=== PATIENT | male | born 1970 | race African-American/Black ===

== ENCOUNTER 2019-03-11 10:44 | Inpatient (IN) | payer OTHER ==
[~2019-03-11] VITALS: Ht 175.3 cm; Wt 77.8 kg
[~2019-03-11 10:44] MED LIST: ACET500T33 PO; ALEVE PO; ASPIRIN PO; CHOL10003 PO; HYDR1TAB15 PO; LOSA-73 PO
[2019-03-11] MEDS ORDERED: CIPROFLOXACIN 400MG PREMIX 200 ML IV STA (11:23)
--- NOTE | 2019-03-11 11:23 | PHYS DOC ---
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 He states his foot has been progressively getting worse and his skin has been peeling off. States it has been progressively getting worse. (ADIEL HSU APRN) Review of Systems Review of Systems Constitutional: Denies fever or chills [] Eyes: Denies change in visual acuity, redness, or eye pain [] HENT: Denies nasal congestion or sore throat [] Respiratory: Denies cough or shortness of breath [] Cardiovascular: No additional information not addressed in HPI [] GI: Denies abdominal pain, nausea, vomiting, bloody stools or diarrhea [] : Denies dysuria or hematuria [] Musculoskeletal: Denies back pain or joint pain [] Integument: Reports infection to R foot. Neurologic: Denies headache, focal weakness or sensory changes [] Endocrine: Denies polyuria or polydipsia [] Complete systems were reviewed and found to be within normal limits, except as documented in this note. (ADIEL HSU APRN) Current Medications Current Medications Current Medications Medications (Trade) Dose Ordered Sig/Gonsalo Start Time Stop Time Status Last Admin Dose Admin Ciprofloxacin/ Dextrose 200 ml @ 200 mls/hr 1X STAT 03/11/19 11:23 03/11/19 12:22 Sodium Chloride 1,000 ml @ 1,000 mls/hr 1X ONCE 03/11/19 11:30 03/11/19 12:29 (ARNALDO MARTINEZ MD) Allergies Allergies Allergies Coded Allergies Type Severity Reaction Last Updated Verified No Known Drug Allergies 08/25/14 No (ARNALDO MARTINEZ MD) Physical Exam Physical Exam Constitutional: Well developed, well nourished, no acute distress, non-toxic appearance. [] HENT: Normocephalic, atraumatic, bilateral external ears normal, oropharynx moist, no oral exudates, nose normal. [] Eyes: PERRLA, EOMI, conjunctiva normal, no discharge. [] Neck: Normal range of motion, no tenderness, supple, no stridor. [] Cardiovascular:Heart rate regular rhythm, no murmur [] Lungs & Thorax: Bilateral breath sounds clear to auscultation [] Abdomen: Bowel sounds normal, soft, no tenderness, no masses, no pulsatile mas ses. [] Skin: skin is peeling off the toes, and fascia of posterior foot is exposed. Back: No tenderness, no CVA tenderness. [] Extremities: Tenderness to posterior portion of foot with hypersensitivity. Neurologic: Alert and oriented X 3, normal motor function, normal sensory function, no focal deficits noted. [] Psychologic: Affect normal, judgement normal, mood normal. [] (ADIEL HSU APRN) Current Patient Data Vital Signs Vital Signs Date Time Temp Pulse Resp B/P (MAP) Pulse Ox O2 Delivery O2 Flow Rate FiO2 03/11/19 10:51 97.7 67 18 140/91 (107) 100 Room Air 97.7 (ARNALDO MARTINEZ MD) Lab Values Laboratory Tests Test 03/11/19 11:36 White Blood Count 4.0 x10^3/uL (4.0-11.0) Red Blood Count 4.00 x10^6/uL (4.30-5.70) L Hemoglobin 14.1 g/dL (13.0-17.5) Hematocrit 40.3 % (39.0-53.0) Mean Corpuscular Volume 101 fL (79-100) H Mean Corpuscular Hemoglobin 35 pg (25-35) Mean Corpuscular Hemoglobin Concent 35 g/dL (31-37) Red Cell Distribution Width 12.8 % (11.5-14.5) Platelet Count 248 x10^3/uL (140-400) Neutrophils (%) (Auto) 59 % (31-73) Lymphocytes (%) (Auto) 22 % (24-48) L Monocytes (%) (Auto) 17 % (0-9) H Eosinophils (%) (Auto) 2 % (0-3) Basophils (%) (Auto) 1 % (0-3) Neutrophils # (Auto) 2.3 x10^3/uL (1.8-7.7) Lymphocytes # (Auto) 0.9 x10^3/uL (1.0-4.8) L Monocytes # (Auto) 0.7 x10^3/uL (0.0-1.1) Eosinophils # (Auto) 0.1 x10^3/uL (0.0-0.7) Basophils # (Auto) 0.0 x10^3/uL (0.0-0.2) Lactic Acid Level 1.0 mmol/L (0.4-2.0) Laboratory Tests 03/11/19 11:36 (ADIEL SHU APRN) EKG EKG [] (ADIEL HSU APRN) Radiology/Procedures Radiology/Procedures [][facility] [address] [place] [address] IMAGING REPORT Signed PATIENT: GIL DUVAL ACCOUNT: [id number] : 1970 LOCATION: [address] [place] [address] AGE: 48 SEX: M EXAM STATUS: ADM IN ORD. PHYSICIAN: ADIEL HSU APRN REASON: trauma/infection to R foot PROCEDURE: FOOT RIGHT 3V FOOT RIGHT 3V 03/11/2019 11:11 AM INDICATION: Trauma. Infection of the right foot. COMPARISON: None available. TECHNIQUE: 3 views of the right foot are provided. FINDINGS: There is no acute fracture or dislocation. Bone mineralization is within normal limits. Joint spaces are maintained. Regional soft tissues are within normal limits. There is no soft tissue gas or osseous erosion. IMPRESSION: No acute fracture or dislocation. Electronically signed by: Evelin Myles MD (03/11/2019 12:29 PM) [facility] DICTATED and SIGNED BY: EVELIN MYLES MD DATE: 03/11/19 0536 (ADIEL HSU APRN) Course & Med Decision Making Course & Med Decision Making Pertinent Labs and Imaging studies reviewed. (See chart for details) Will get labs, x-ray, and give antibiotics. Labs and imaging are unremarkable. Will call hospitalist for admission. Discussed with Dr. Allen who agrees to admission ([id number]). (ADIEL HSU APRN) Course & Med Decision Making ER PHYSICIAN ATTENDING NOTE: I have personally seen and examined the patient, and agree with the history, physical exam, and plan, as documented by mid-level provider. The patient does have sensation present on his toes distally. (ARNALDO MARTINEZ MD) Dragon Disclaimer Dragon Disclaimer This electronic medical record was generated, in whole or in part, using a voice recognition dictation system. (ADIEL HSU APRN) Departure Departure Impression: Primary Impression: Trench foot of right lower extremity Additional Impression: Foot infection Disposition: ADMITTED INPATIENT Admitting Physician: PURVI (ADIEL HSU APRN) Condition: STABLE Referrals: Ligia GOODE MD (PCP) Problem Qualifiers Primary Impression: Trench foot of right lower extremity Encounter type: initial encounter Qualified Codes: T69.021A - Immersion foot, right foot, initial encounter ADIEL HSU APRN Mar 11, 2019 11:23 ARNALDO MARTINEZ MD Mar 11, 2019 11:33
[2019-03-11] MEDS ORDERED: IV NORMAL SALINE 1000ML BAG 1,000 ML IV ONE (11:30)
[2019-03-11 11:49] LABS: BASO % 1 % (0-3); EOS # 0.1 x10^3/uL (0.0-0.7); EOS % 2 % (0-3); HEMATOCRIT 40.3 % (39.0-53.0); HEMOGLOBIN 14.1 g/dL (13.0-17.5); LYMPH # 0.9 x10^3/uL (1.0-4.8); LYMPH % 22 % (24-48); MEAN CORPUSCULAR HEMOGLOBIN 35 pg (25-35); MEAN CORPUSCULAR HGB CONC 35 g/dL (31-37); MEAN CORPUSCULAR VOLUME 101 fL (79-100); MONO # 0.7 x10^3/uL (0.0-1.1); MONO % 17 % (0-9); NEUT # 2.3 x10^3/uL (1.8-7.7); NEUT % 59 % (31-73); PLATELET COUNT 248 x10^3/uL (140-400); RED CELL DISTRIBUTION WIDTH 12.8 % (11.5-14.5)
[2019-03-11] MEDS ORDERED: CLINDAMYCIN 600MG PREMIX 50 ML IV ONE (12:00)
[2019-03-11] MEDS ORDERED: MORPHINE SULFATE 2 MG/ML VIAL. IV PRN (12:00)
[2019-03-11 12:25] LABS: CALCIUM 8.5 mg/dL (8.5-10.1); CREATININE 1.1 mg/dL (0.7-1.3); GFR 87.2; POTASSIUM 3.4 mmol/L (3.5-5.1)
[2019-03-11 12:30] LABS: ALBUMIN 3.6 g/dL (3.4-5.0); TOTAL BILIRUBIN 0.4 mg/dL (0.2-1.0); TOTAL PROTEIN 7.1 g/dL (6.4-8.2)
--- NOTE | 2019-03-11 12:32 | RAD ---
FOOT RIGHT 3V 03/11/2019 11:11 AM INDICATION: Trauma. Infection of the right foot. COMPARISON: None available. TECHNIQUE: 3 views of the right foot are provided. FINDINGS: There is no acute fracture or dislocation. Bone mineralization is within normal limits. Joint spaces are maintained. Regional soft tissues are within normal limits. There is no soft tissue gas or osseous erosion. IMPRESSION: No acute fracture or dislocation. Electronically signed by: Jovana Torres MD (03/11/2019 12:29 PM) [facility] [place]
--- NOTE | 2019-03-11 12:38 | PDOC1 ---
History and Physical Date of Admission Date of Admission DATE: 03/11/19 TIME: 10:38 Identification/Chief Complaint Chief Complaint SEEN IN ER WITH RIGHT FOOT INFECTION working at an [employer] complex a week ago and he stepped in some water and his feet were soaked for 9 hours. He states his foot has been progressively getting worse and his skin has been peeling off. States it has been progressively getting worse. Past Medical History Past Medical History Past Medical History: High Cholesterol, Hypertension Past Surgical History: No Surgical History NO TOBACCO Alcohol Use: Occasionally Drug Use: Marijuana WORKS AT [employer] Cardiovascular: HTN, Hyperlipidemia Psych: Addictions Family History Family History: Hypertension Social History Smoke: No ALCOHOL: occassional Drugs: Marijuana Current Problem List Problem List Problems Medical Problems: (1) Foot infection Status: Acute (2) Necrosis of tissue at site of injection Status: Acute (3) Trench foot of right lower extremity Status: Acute Current Medications Current Medications Current Medications Sodium Chloride 1,000 ml @ 1,000 mls/hr 1X ONCE IV Last administered on 03/11/19at 11:38; Start 03/11/19 at 11:30; Stop 03/11/19 at 12:29; Status DC Ciprofloxacin/ Dextrose 200 ml @ 200 mls/hr 1X STAT IV Last administered on 03/11/19at 11:55; Start 03/11/19 at 11:23; Stop 03/11/19 at 12:22; Status DC Clindamycin Phosphate 50 ml @ 100 mls/hr 1X ONCE IV ; Start 03/11/19 at 12:00; Stop 03/11/19 at 12:29; Status DC Morphine Sulfate (Morphine Sulfate) 2 mg PRN Q2HR PRN IV PAIN; Start 03/11/19 at 12:00; Stop 03/12/19 at 11:59 Active Scripts Active Reported Vicodin Es 7.5-300 Mg Tablet (Hydrocodone Bit/Acetaminophen) 1 Each Tablet 1 Each PO Q6HRS PRN [Aleve] PO PRN PRN Tylenol Extra Strength (Acetaminophen) 500 Mg Tablet 1,000 Mg PO PRN PRN Vitamin D3 (Cholecalciferol (Vitamin D3)) 1,000 Unit Tablet 1 Tab PO BID Losartan Potassium 50 Mg Tablet 1 Tab PO DAILY Allergies Allergies: Coded Allergies: No Known Drug Allergies (Unverified , 08/25/14) ROS Review of System Review of Systems Review of Systems Constitutional: Denies fever or chills [] Eyes: Denies change in visual acuity, redness, or eye pain [] HENT: Denies nasal congestion or sore throat [] Respiratory: Denies cough or shortness of breath [] Cardiovascular: No additional information not addressed in HPI [] GI: Denies abdominal pain, nausea, vomiting, bloody stools or diarrhea [] : Denies dysuria or hematuria [] Musculoskeletal: Denies back pain or joint pain [] Integument: Reports infection to R foot. Neurologic: Denies headache, focal weakness or sensory changes [] Endocrine: Denies polyuria or polydipsia [] 14 PT systems were reviewed and found to be within normal limits, except as documented Physical Exam Physical Exam Physical Exam Physical Exam Constitutional: Well developed, well nourished, no acute distress, non-toxic appearance. [] HENT: Normocephalic, atraumatic, bilateral external ears normal, oropharynx moist, no oral exudates, nose normal. [] Eyes: PERRLA, EOMI, conjunctiva normal, no discharge. [] Neck: Normal range of motion, no tenderness, supple, no stridor. [] Cardiovascular:Heart rate regular rhythm, no murmur [] Lungs & Thorax: Bilateral breath sounds clear to auscultation [] Abdomen: Bowel sounds normal, soft, no tenderness, no masses, no pulsatile masses. [] Skin: skin is peeling off the toes, and fascia of posterior foot is exposed. Back: No tenderness, no CVA tenderness. [] Extremities: Tenderness to posterior portion of RIGHT foot with hypersensitivity. Neurologic: Alert and oriented X 3, normal motor function, normal sensory function, no focal deficits noted. [] Psychologic: Affect normal, judgment normal, mood normal. [] General: Alert, Oriented X3, Cooperative, No acute distress HEENT: EOMI, Mucous membr. moist/pink Lungs: Clear to auscultation, Normal air movement Heart: RRR, no thrills Abdomen: Normal bowel sounds, Soft Rectal Exam: not examined Extremities: No cyanosis Neuro: Normal speech, Cranial nerves 3-12 NL Psych/Mental Status: Mental status NL, Mood NL Vitals Vitals Vital Signs Date Time Temp Pulse Resp B/P (MAP) Pulse Ox O2 Delivery O2 Flow Rate FiO2 03/11/19 10:51 97.7 67 18 140/91 (107) 100 Room Air 97.7 Labs Labs Laboratory Tests Test 03/11/19 11:36 03/11/19 12:09 White Blood Count 4.0 x10^3/uL (4.0-11.0) Red Blood Count 4.00 x10^6/uL (4.30-5.70) Hemoglobin 14.1 g/dL (13.0-17.5) Hematocrit 40.3 % (39.0-53.0) Mean Corpuscular Volume 101 fL (79-100) Mean Corpuscular Hemoglobin 35 pg (25-35) Mean Corpuscular Hemoglobin Concent 35 g/dL (31-37) Red Cell Distribution Width 12.8 % (11.5-14.5) Platelet Count 248 x10^3/uL (140-400) Neutrophils (%) (Auto) 59 % (31-73) Lymphocytes (%) (Auto) 22 % (24-48) Monocytes (%) (Auto) 17 % (0-9) Eosinophils (%) (Auto) 2 % (0-3) Basophils (%) (Auto) 1 % (0-3) Neutrophils # (Auto) 2.3 x10^3/uL (1.8-7.7) Lymphocytes # (Auto) 0.9 x10^3/uL (1.0-4.8) Monocytes # (Auto) 0.7 x10^3/uL (0.0-1.1) Eosinophils # (Auto) 0.1 x10^3/uL (0.0-0.7) Basophils # (Auto) 0.0 x10^3/uL (0.0-0.2) Lactic Acid Level 1.0 mmol/L (0.4-2.0) Sodium Level 143 mmol/L (136-145) Potassium Level 3.4 mmol/L (3.5-5.1) Chloride Level 107 mmol/L (98-107) Carbon Dioxide Level 29 mmol/L (21-32) Anion Gap 7 (6-14) Blood Urea Nitrogen 13 mg/dL (8-26) Creatinine 1.1 mg/dL (0.7-1.3) Estimated GFR (Cockcroft-Gault) 87.2 BUN/Creatinine Ratio 12 (6-20) Glucose Level 93 mg/dL (70-99) Calcium Level 8.5 mg/dL (8.5-10.1) Total Bilirubin 0.4 mg/dL (0.2-1.0) Aspartate Amino Transf (AST/SGOT) 23 U/L (15-37) Alanine Aminotransferase (ALT/SGPT) 17 U/L (16-63) Alkaline Phosphatase 93 U/L (46-116) Total Protein 7.1 g/dL (6.4-8.2) Albumin 3.6 g/dL (3.4-5.0) Albumin/Globulin Ratio 1.0 (1.0-1.7) Laboratory Tests Test 03/11/19 11:36 03/11/19 12:09 White Blood Count 4.0 x10^3/uL (4.0-11.0) Red Blood Count 4.00 x10^6/uL (4.30-5.70) Hemoglobin 14.1 g/dL (13.0-17.5) Hematocrit 40.3 % (39.0-53.0) Mean Corpuscular Volume 101 fL (79-100) Mean Corpuscular Hemoglobin 35 pg (25-35) Mean Corpuscular Hemoglobin Concent 35 g/dL (31-37) Red Cell Distribution Width 12.8 % (11.5-14.5) Platelet Count 248 x10^3/uL (140-400) Neutrophils (%) (Auto) 59 % (31-73) Lymphocytes (%) (Auto) 22 % (24-48) Monocytes (%) (Auto) 17 % (0-9) Eosinophils (%) (Auto) 2 % (0-3) Basophils (%) (Auto) 1 % (0-3) Neutrophils # (Auto) 2.3 x10^3/uL (1.8-7.7) Lymphocytes # (Auto) 0.9 x10^3/uL (1.0-4.8) Monocytes # (Auto) 0.7 x10^3/uL (0.0-1.1) Eosinophils # (Auto) 0.1 x10^3/uL (0.0-0.7) Basophils # (Auto) 0.0 x10^3/uL (0.0-0.2) Lactic Acid Level 1.0 mmol/L (0.4-2.0) Sodium Level 143 mmol/L (136-145) Potassium Level 3.4 mmol/L (3.5-5.1) Chloride Level 107 mmol/L (98-107) Carbon Dioxide Level 29 mmol/L (21-32) Anion Gap 7 (6-14) Blood Urea Nitrogen 13 mg/dL (8-26) Creatinine 1.1 mg/dL (0.7-1.3) Estimated GFR (Cockcroft-Gault) 87.2 BUN/Creatinine Ratio 12 (6-20) Glucose Level 93 mg/dL (70-99) Calcium Level 8.5 mg/dL (8.5-10.1) Total Bilirubin 0.4 mg/dL (0.2-1.0) Aspartate Amino Transf (AST/SGOT) 23 U/L (15-37) Alanine Aminotransferase (ALT/SGPT) 17 U/L (16-63) Alkaline Phosphatase 93 U/L (46-116) Total Protein 7.1 g/dL (6.4-8.2) Albumin 3.6 g/dL (3.4-5.0) Albumin/Globulin Ratio 1.0 (1.0-1.7) Images Images FOOT RIGHT 3V 03/11/2019 11:11 AM INDICATION: Trauma. Infection of the right foot. COMPARISON: None available. TECHNIQUE: 3 views of the right foot are provided. FINDINGS: There is no acute fracture or dislocation. Bone mineralization is within normal limits. Joint spaces are maintained. Regional soft tissues are within normal limits. There is no soft tissue gas or osseous erosion. IMPRESSION: No acute fracture or dislocation. Electronically signed by: Evelin Torres MD (03/11/2019 12:29 PM) [place] [id number] DICTATED and SIGNED BY: EVELIN TORRES MD VTE Prophylaxis Ordered VTE Prophylaxis Devices: Contraindicated VTE Pharmacological Prophylaxi: Yes Assessment/Plan Assessment/Plan Impression: SEVERE Trench foot of right lower extremity CELLULITIS RIGHT FOOT, ACUTE THC ABUSE HX HX HTN PLAN ADMIT IV ANTIBIOTICS, CIPRO, CLINDAMYCIN X ONE IN ER ID CONSULT TD if not UTD DVT PROPHYLAXIS,LOVENOX WOUND CARE NURSE CONSULT ORTHO CONSULT 55 MIN PT EXAM, CHART REVIEW, > 50% OF TIME SPENT WITH EXAM, CHART REVIEW, PT CARE COORDINATION GIL RICE MD Mar 11, 2019 12:38
[2019-03-11] MEDS ORDERED: ACETAMINOPHEN 500 MG TABLET PO PRN (13:00)
[2019-03-11] MEDS ORDERED: DIPHTH,PERTUSS(ACELL),TET TOX 0.5 ML DISP.SYRIN. VAX IM ONE (13:00)
[2019-03-11] MEDS ORDERED: VANCOMYCIN 1.75 GM in IV NORMAL SALINE 500ML BAG 500 ML IV ONE (13:00)
[2019-03-11] MEDS ORDERED: HYDROcodone/APAP 7.5/325MG 1 TAB TABLET PO PRN (13:00)
[2019-03-11] MEDS ORDERED: POTASSIUM CHLORIDE 20 MEQ TABLET.ER. PO ONE (13:00)
[2019-03-11] MEDS ORDERED: VANCOMYCIN 1 GM in IV NORMAL SALINE 250ML 250 ML IV SCH (13:00)
--- NOTE | 2019-03-11 13:23 | PDOC ---
Infectious Disease Note Vital Signs: Vital Signs Vital Signs Date Time Temp Pulse Resp B/P (MAP) Pulse Ox O2 Delivery O2 Flow Rate FiO2 03/11/19 12:38 145/91 (109) 03/11/19 10:51 97.7 67 18 100 Room Air 97.7 Medications: Inpatient Meds: Current Medications Medications (Trade) Dose Ordered Sig/Gonsalo Start Time Stop Time Status Last Admin Dose Admin Acetaminophen (Tylenol) 1,000 mg PRN Q8HRS PRN 03/11/19 13:00 Acetaminophen/ Hydrocodone Bitart (Lortab 7.5/325) 1 tab PRN Q6HRS PRN 03/11/19 13:00 Ciprofloxacin/ Dextrose 200 ml @ 200 mls/hr 1X STAT 03/11/19 11:23 03/11/19 12:22 DC 03/11/19 11:55 200 MLS/HR Clindamycin Phosphate 50 ml @ 100 mls/hr 1X ONCE 03/11/19 12:00 03/11/19 12:29 DC Diphtheria/ Tetanus/Acell Pertussis (Boostrix) 0.5 ml ONCE ONCE 03/11/19 13:00 03/11/19 13:01 DC Losartan Potassium (Cozaar) 50 mg DAILY 03/12/19 09:00 Morphine Sulfate (Morphine Sulfate) 2 mg PRN Q2HR PRN 03/11/19 12:00 03/12/19 11:59 Potassium Chloride (Klor-Con) 20 meq [id number] 03/12/19 08:00 Sodium Chloride 1,000 ml @ 1,000 mls/hr 1X ONCE 03/11/19 11:30 03/11/19 12:29 DC 03/11/19 11:38 1,000 MLS/HR Vancomycin HCl (Vanco Per Pharmacy) 1 each PRN DAILY PRN 03/11/19 13:00 Vancomycin HCl 1.75 gm/Sodium Chloride 500 ml @ 250 mls/hr 1X ONCE 03/11/19 13:00 03/11/19 14:59 Vancomycin HCl 1 gm/Sodium Chloride 250 ml @ 250 mls/hr Q12H 03/11/19 13:00 UNV Vitamin D (Vitamin D3) 1,000 unit BID 03/11/19 21:00 Labs: Lab Laboratory Tests Test 03/11/19 11:36 11/11/19 12:09 White Blood Count 4.0 x10^3/uL (4.0-11.0) Red Blood Count 4.00 x10^6/uL (4.30-5.70) Hemoglobin 14.1 g/dL (13.0-17.5) Hematocrit 40.3 % (39.0-53.0) Mean Corpuscular Volume 101 fL (79-100) Mean Corpuscular Hemoglobin 35 pg (25-35) Mean Corpuscular Hemoglobin Concent 35 g/dL (31-37) Red Cell Distribution Width 12.8 % (11.5-14.5) Platelet Count 248 x10^3/uL (140-400) Neutrophils (%) (Auto) 59 % (31-73) Lymphocytes (%) (Auto) 22 % (24-48) Monocytes (%) (Auto) 17 % (0-9) Eosinophils (%) (Auto) 2 % (0-3) Basophils (%) (Auto) 1 % (0-3) Neutrophils # (Auto) 2.3 x10^3/uL (1.8-7.7) Lymphocytes # (Auto) 0.9 x10^3/uL (1.0-4.8) Monocytes # (Auto) 0.7 x10^3/uL (0.0-1.1) Eosinophils # (Auto) 0.1 x10^3/uL (0.0-0.7) Basophils # (Auto) 0.0 x10^3/uL (0.0-0.2) Lactic Acid Level 1.0 mmol/L (0.4-2.0) Sodium Level 143 mmol/L (136-145) Potassium Level 3.4 mmol/L (3.5-5.1) Chloride Level 107 mmol/L (98-107) Carbon Dioxide Level 29 mmol/L (21-32) Anion Gap 7 (6-14) Blood Urea Nitrogen 13 mg/dL (8-26) Creatinine 1.1 mg/dL (0.7-1.3) Estimated GFR (Cockcroft-Gault) 87.2 BUN/Creatinine Ratio 12 (6-20) Glucose Level 93 mg/dL (70-99) Calcium Level 8.5 mg/dL (8.5-10.1) Total Bilirubin 0.4 mg/dL (0.2-1.0) Aspartate Amino Transf (AST/SGOT) 23 U/L (15-37) Alanine Aminotransferase (ALT/SGPT) 17 U/L (16-63) Alkaline Phosphatase 93 U/L (46-116) Total Protein 7.1 g/dL (6.4-8.2) Albumin 3.6 g/dL (3.4-5.0) Albumin/Globulin Ratio 1.0 (1.0-1.7) Objective: Assessment: Pt seen and examined ID consult dictated [id number] Rt trench foot Rt Foot cellulitis HTN Plan: Plan of Care Vanc, zosyn and micafungin local foot care f/u labs and cults Thank you HOWARD STARR MD Mar 11, 2019 13:23
--- NOTE | 2019-03-11 13:42 | PDOC2 ---
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 he later noticed skin sloughing after he had scratched his foot through his socks. Referring Physician Referring Physician: Dr Allen Identification/Chief Complaint Chief Complaint Pain and skin sloughing from right adri between toes and along plantar surface of pad under toes. Source Source: Caregiver, Chart review, Patient History of Present Illness Reason for Visit: Pain and skin loss form trench foot. Past Medical History Cardiovascular: HTN, Hyperlipidemia Psych: Addictions Family History Family History: Hypertension Social History No ALCOHOL: occassional Drugs: Marijuana Current Problem List Problem List Problems Medical Problems: (1) Foot infection Status: Acute (2) Necrosis of tissue at site of injection Status: Acute (3) Trench foot of right lower extremity Status: Acute Current Medications Current Medications Current Medications Sodium Chloride 1,000 ml @ 1,000 mls/hr 1X ONCE IV Last administered on 03/11/19at 11:38; Start 03/11/19 at 11:30; Stop 03/11/19 at 12:29; Status DC Ciprofloxacin/ Dextrose 200 ml @ 200 mls/hr 1X STAT IV Last administered on 03/11/19at 11:55; Start 03/11/19 at 11:23; Stop 03/11/19 at 12:22; Status DC Clindamycin Phosphate 50 ml @ 100 mls/hr 1X ONCE IV ; Start 03/11/19 at 12:00; Stop 03/11/19 at 12:29; Status DC Morphine Sulfate (Morphine Sulfate) 2 mg PRN Q2HR PRN IV PAIN; Start 03/11/19 at 12:00; Stop 03/12/19 at 11:59 Vancomycin HCl 1 gm/Sodium Chloride 250 ml @ 250 mls/hr Q12H IV ; Start 03/11/19 at 13:00; Status UNV Acetaminophen (Tylenol) 1,000 mg PRN Q8HRS PRN PO PAIN; Start 03/11/19 at 13:00 Vitamin D (Vitamin D3) 1,000 unit BID PO ; Start 03/11/19 at 21:00 Losartan Potassium (Cozaar) 50 mg DAILY PO ; Start 03/12/19 at 09:00 Acetaminophen/ Hydrocodone Bitart (Lortab 7.5/325) 1 tab PRN Q6HRS PRN PO PAIN; Start 03/11/19 at 13:00 Diphtheria/ Tetanus/Acell Pertussis (Boostrix) 0.5 ml ONCE ONCE VAX IM ; Start 03/11/19 at 13:00; Stop 03/11/19 at 13:01; Status DC Potassium Chloride (Klor-Con) 40 meq 1X ONCE PO ; Start 03/11/19 at 13:00; Stop 03/11/19 at 13:01; Status DC Potassium Chloride (Klor-Con) 20 meq DAILYWBKFT PO ; Start 03/12/19 at 08:00 Vancomycin HCl (Vanco Per Pharmacy) 1 each PRN DAILY PRN MC SEE COMMENTS; Start 03/11/19 at 13:00 Vancomycin HCl 1.75 gm/Sodium Chloride 500 ml @ 250 mls/hr 1X ONCE IV ; Start 03/11/19 at 13:00; Stop 03/11/19 at 14:59 Active Scripts Active Reported Vicodin Es 7.5-300 Mg Tablet (Hydrocodone Bit/Acetaminophen) 1 Each Tablet 1 Each PO Q6HRS PRN [Aleve] PO PRN PRN Tylenol Extra Strength (Acetaminophen) 500 Mg Tablet 1,000 Mg PO PRN PRN Vitamin D3 (Cholecalciferol (Vitamin D3)) 1,000 Unit Tablet 1 Tab PO BID Losartan Potassium 50 Mg Tablet 1 Tab PO DAILY Allergies Allergies: Coded Allergies: No Known Drug Allergies (Unverified , 08/25/14) Physical Exam General: Alert, Oriented X3, Cooperative, moderate distress Extremities: No clubbing, No cyanosis, Normal pulses MUSCULOSKELETAL: Abnormal exam of right (the foot is up on pillows upon entering the room. There is maseration of the skin between the toes on the right foot with open areas of pink granulation tissue under the pads of the toes where the skin has been removed. motor and sensation intact distally at the right foot and ankle. Patient is able to move foot and ankle with minimal restriction but is hesitant to move toes related to pain. ) Vitals VITALS Vital Signs Date Time Temp Pulse Resp B/P (MAP) Pulse Ox O2 Delivery O2 Flow Rate FiO2 03/11/19 12:38 145/91 (109) 03/11/19 10:51 97.7 67 18 100 Room Air 97.7 Labs Labs Laboratory Tests Test 03/11/19 11:36 03/11/19 12:09 White Blood Count 4.0 x10^3/uL (4.0-11.0) Red Blood Count 4.00 x10^6/uL (4.30-5.70) Hemoglobin 14.1 g/dL (13.0-17.5) Hematocrit 40.3 % (39.0-53.0) Mean Corpuscular Volume 101 fL (79-100) Mean Corpuscular Hemoglobin 35 pg (25-35) Mean Corpuscular Hemoglobin Concent 35 g/dL (31-37) Red Cell Distribution Width 12.8 % (11.5-14.5) Platelet Count 248 x10^3/uL (140-400) Neutrophils (%) (Auto) 59 % (31-73) Lymphocytes (%) (Auto) 22 % (24-48) Monocytes (%) (Auto) 17 % (0-9) Eosinophils (%) (Auto) 2 % (0-3) Basophils (%) (Auto) 1 % (0-3) Neutrophils # (Auto) 2.3 x10^3/uL (1.8-7.7) Lymphocytes # (Auto) 0.9 x10^3/uL (1.0-4.8) Monocytes # (Auto) 0.7 x10^3/uL (0.0-1.1) Eosinophils # (Auto) 0.1 x10^3/uL (0.0-0.7) Basophils # (Auto) 0.0 x10^3/uL (0.0-0.2) Lactic Acid Level 1.0 mmol/L (0.4-2.0) Sodium Level 143 mmol/L (136-145) Potassium Level 3.4 mmol/L (3.5-5.1) Chloride Level 107 mmol/L (98-107) Carbon Dioxide Level 29 mmol/L (21-32) Anion Gap 7 (6-14) Blood Urea Nitrogen 13 mg/dL (8-26) Creatinine 1.1 mg/dL (0.7-1.3) Estimated GFR (Cockcroft-Gault) 87.2 BUN/Creatinine Ratio 12 (6-20) Glucose Level 93 mg/dL (70-99) Calcium Level 8.5 mg/dL (8.5-10.1) Total Bilirubin 0.4 mg/dL (0.2-1.0) Aspartate Amino Transf (AST/SGOT) 23 U/L (15-37) Alanine Aminotransferase (ALT/SGPT) 17 U/L (16-63) Alkaline Phosphatase 93 U/L (46-116) Total Protein 7.1 g/dL (6.4-8.2) Albumin 3.6 g/dL (3.4-5.0) Albumin/Globulin Ratio 1.0 (1.0-1.7) Laboratory Tests Test 03/11/19 11:36 03/11/19 12:09 White Blood Count 4.0 x10^3/uL (4.0-11.0) Red Blood Count 4.00 x10^6/uL (4.30-5.70) Hemoglobin 14.1 g/dL (13.0-17.5) Hematocrit 40.3 % (39.0-53.0) Mean Corpuscular Volume 101 fL (79-100) Mean Corpuscular Hemoglobin 35 pg (25-35) Mean Corpuscular Hemoglobin Concent 35 g/dL (31-37) Red Cell Distribution Width 12.8 % (11.5-14.5) Platelet Count 248 x10^3/uL (140-400) Neutrophils (%) (Auto) 59 % (31-73) Lymphocytes (%) (Auto) 22 % (24-48) Monocytes (%) (Auto) 17 % (0-9) Eosinophils (%) (Auto) 2 % (0-3) Basophils (%) (Auto) 1 % (0-3) Neutrophils # (Auto) 2.3 x10^3/uL (1.8-7.7) Lymphocytes # (Auto) 0.9 x10^3/uL (1.0-4.8) Monocytes # (Auto) 0.7 x10^3/uL (0.0-1.1) Eosinophils # (Auto) 0.1 x10^3/uL (0.0-0.7) Basophils # (Auto) 0.0 x10^3/uL (0.0-0.2) Lactic Acid Level 1.0 mmol/L (0.4-2.0) Sodium Level 143 mmol/L (136-145) Potassium Level 3.4 mmol/L (3.5-5.1) Chloride Level 107 mmol/L (98-107) Carbon Dioxide Level 29 mmol/L (21-32) Anion Gap 7 (6-14) Blood Urea Nitrogen 13 mg/dL (8-26) Creatinine 1.1 mg/dL (0.7-1.3) Estimated GFR (Cockcroft-Gault) 87.2 BUN/Creatinine Ratio 12 (6-20) Glucose Level 93 mg/dL (70-99) Calcium Level 8.5 mg/dL (8.5-10.1) Total Bilirubin 0.4 mg/dL (0.2-1.0) Aspartate Amino Transf (AST/SGOT) 23 U/L (15-37) Alanine Aminotransferase (ALT/SGPT) 17 U/L (16-63) Alkaline Phosphatase 93 U/L (46-116) Total Protein 7.1 g/dL (6.4-8.2) Albumin 3.6 g/dL (3.4-5.0) Albumin/Globulin Ratio 1.0 (1.0-1.7) Images Images xrays were reviewed with no fracture or dislocation noted. no gas or osseous destruction is noted. Assessment/Plan Assessment/Plan Trench foot right foot. antibiotics started per hospitalist wound care consulted PT to eval and treat. GUTIERREZ COLINDRES APRN Mar 11, 2019 13:42
[2019-03-11] MEDS ORDERED: MICAFUNGIN 100 MG in IV DEXTROSE 5% 100ML 100 ML IV SCH (14:00)
[2019-03-11 14:54] VITALS: BP 123/77
[2019-03-11] MEDS: VANCOMYCIN PER PHARMACY MC PRN ×2 (15:32→15:37)
--- NOTE | 2019-03-11 15:37 | NUR ---
Pharmacy Vancomycin Dosing Note S:Consulted to monitor and dose vancomycin started 03/11/19. O:GIL DUVAL is a 48 year old M with Cellulitis . Height: 5 feet, 9 inches Weight: 81.196110 kg [place] Body Weight: 70.70 Adjusted Body Weight: 75.06 Dosing Weight: Actual Other Antibiotics: Zosyn and Micafungin LABS: Last BUN: 13 Last Creatinine: 1.1 Creatinine Clearance: 84 mL/min Last WBC: 4.0 Last Procalcitonin: Tmax (past 24 hours): 98.5 Microbiology: I/O: Drug Levels: Last level: on at Last dose given 03/11/19 at 1359 Vancomycin Dosing: Loading Dose: 1750 mg x1 Dosing Weight: Actual Target Trough: 10-20 A: Based on weight and est. CrCl: P: 1. Give Vancomycin 1750mg, followed by Vancomycin 1250 mg IV q12h. 2. Follow up Trough level on 03/13/19 at 0130. 3. Pharmacy will continue to monitor, follow and adjust therapy as needed. Jitendra Riley [facility], 03/11/19 [id number]
[2019-03-11] MEDS: oxyCODONE/APAP 5/325 1 TAB TABLET PO PRN (16:18)
[2019-03-11] MEDS: PIPERACILLIN/TAZOBACTAM 3.375 GM in IV NORMAL SALINE 50ML 50 ML IV SCH ×2 (17:56→23:59)
[2019-03-11 19:55] VITALS: BP 126/64
[2019-03-11] MEDS: CHOLECALCIFEROL (VITAMIN D3) 1,000 UNIT TABLET PO SCH (20:18)
[2019-03-11 23:55] VITALS: BP 135/86
[2019-03-12] MEDS ORDERED: VANCOMYCIN 1.25 GM in IV NORMAL SALINE 250ML 250 ML IV SCH (02:00)
[2019-03-12 03:45] VITALS: BP 126/83
--- NOTE | 2019-03-12 04:34 | CONS ---
DATE OF CONSULTATION: 03/11/2019 REFERRING PHYSICIAN: Dr. Parker REASON FOR CONSULTATION: Trench foot, right. HISTORY OF PRESENT ILLNESS: A 48-year-old -[place] male presented to the ER on 03/11/2019 with complaints of right foot wound, which is getting worse over the last week. 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 He stepped into some water and had his socks and shoes soaked for 9 hours. His foot started getting worse with itching and skin peeling off and swelling, which gradually got worse. He denied being on any antibiotics previously. He denies any fevers, chills, nausea, vomiting, diarrhea, abdominal pain, symptoms, shortness of breath, or cough. The patient received a dose of Cipro and clindamycin. ID consult has been requested for antibiotic management. PAST MEDICAL HISTORY: Hypertension, hyperlipidemia, marijuana use, history of addiction. FAMILY HISTORY: As per HPI. 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 REVIEW OF SYSTEMS: Negative except for above. ALLERGIES: No known drug allergies. CURRENT MEDICATIONS: Status post one dose of Cipro, clindamycin, and morphine. PHYSICAL EXAMINATION: VITAL SIGNS: Temperature 97.7, pulse 67, respiratory rate 18, blood pressure 145/91, oxygen saturation 100% on room air. GENERAL: Alert, oriented x 3 male, in no acute distress, lying comfortably in bed, pleasant, cooperative. HEENT: Normocephalic, atraumatic, anicteric. No thrush. Oral mucosa moist. NECK: Supple, no JVD. LUNGS: Clear bilaterally. HEART: S1, S2, no murmurs. ABDOMEN: Soft, nontender, nondistended. EXTREMITIES: No edema except for right foot where there is some edema, slight warmth. Skin is peeling off the toes. Tinea present. Fascia of the plantar aspect of the foot is exposed. No april purulence, tenderness present, hypersensitive skin. NEUROLOGIC: Alert and oriented x 3, grossly nonfocal. PSYCHIATRIC: Cooperative, appropriate mood and affect. LABORATORY DATA: WBC 4.0, hemoglobin 14.1, hematocrit 40.3, platelets 248, monocytes 17%. Sodium 143, potassium 3.4, chloride 107, bicarbonate 29, BUN 13, creatinine 1.1, glucose 93, lactate 1.0. LFTs are within normal limits. IMAGING: Foot x-ray shows no acute fracture or dislocation. IMPRESSION: 1. Right foot cellulitis. 2. Trench foot, right lower extremity with exposure to water for a prolonged period of time with socks and shoes in place. 3. Hypertension. 4. Marijuana dependence. RECOMMENDATIONS: 1. Start Zosyn, vancomycin and micafungin. 2. Monitor renal functions closely. 3. Follow up blood culture results. 4. Continue local care. 5. Elevate right lower extremity. 6. Follow up cultures and lab. 7. Continue supportive care. Thank you for allowing me to participate in this patient's care. If you have any questions, do not hesitate to contact us. HOWARD STARR MD DR: RODRÍGUEZ/meghan JOB#: [id number] / [id number]
[2019-03-12 04:58] LABS: BASO % 1 % (0-3); EOS # 0.1 x10^3/uL (0.0-0.7); EOS % 2 % (0-3); HEMATOCRIT 39.4 % (39.0-53.0); HEMOGLOBIN 13.7 g/dL (13.0-17.5); LYMPH # 1.2 x10^3/uL (1.0-4.8); LYMPH % 33 % (24-48); MEAN CORPUSCULAR HEMOGLOBIN 35 pg (25-35); MEAN CORPUSCULAR HGB CONC 35 g/dL (31-37); MEAN CORPUSCULAR VOLUME 101 fL (79-100); MONO # 0.7 x10^3/uL (0.0-1.1); MONO % 18 % (0-9); NEUT # 1.7 x10^3/uL (1.8-7.7); NEUT % 47 % (31-73); PLATELET COUNT 206 x10^3/uL (140-400); RED BLOOD COUNT 3.91 x10^6/uL (4.30-5.70); WHITE BLOOD COUNT 3.6 x10^3/uL (4.0-11.0)
[2019-03-12 05:31] LABS: ALBUMIN 3.3 g/dL (3.4-5.0); ALBUMIN/GLOBULIN RATIO 0.9 (1.0-1.7); CREATININE 1.2 mg/dL (0.7-1.3); GFR 78.9; POTASSIUM 3.8 mmol/L (3.5-5.1); TOTAL BILIRUBIN 0.3 mg/dL (0.2-1.0); TOTAL PROTEIN 6.8 g/dL (6.4-8.2)
[2019-03-12] MEDS: PIPERACILLIN/TAZOBACTAM 3.375 GM in IV NORMAL SALINE 50ML 50 ML IV SCH (05:51)
[2019-03-12] MEDS ORDERED: ALTEPLASE 1MG SYRINGE. INT CAT ONE (06:00)
[2019-03-12 07:00] VITALS: BP 135/89
[2019-03-12] MEDS ORDERED: POTASSIUM CHLORIDE 20 MEQ TABLET.ER. PO SCH (08:00)
--- NOTE | 2019-03-12 08:34 | PDOC ---
PROGRESS NOTES Chief Complaint Chief Complaint A/P: SEVERE Trench foot of right lower extremity CELLULITIS RIGHT FOOT, ACUTE THC ABUSE HX HTN Macrocytosis History of Present Illness History of Present Illness Mr Mcdonald is a 48 yo M w/ PMHx Hypertension, hyperlipidemia, marijuana use who presented to the ER on 03/11/2019 with complaints of right foot wound, which is getting worse over the last week. At his job he stepped and soaked his foot in water with wet socks and shoes for over 9 hours. He was started on Cipro and clindamycin and admitted for right trench foot with ID consult and Ortho consult. Feeling improved today. Found out his son needs to be hospitalized. Wishes for d/c. Needs to keep his foot elevated. pain with dressing change. D/w ID he can go home on zyvox and augmentin 14 days as well as fluconazole 10 days and have wound care f/u outpatient. Vitals Vitals Vital Signs Date Time Temp Pulse Resp B/P (MAP) Pulse Ox O2 Delivery O2 Flow Rate FiO2 03/12/19 07:00 98.2 60 16 135/89 (104) 98 Room Air 98.2 Physical Exam General: Alert, Oriented X3, Cooperative, moderate distress Heart: Regular rate, Normal S1, Normal S2 Lungs: Clear Abdomen: Normal bowel sounds, Soft Extremities: No clubbing, No cyanosis, Normal pulses Labs LABS Laboratory Tests Test 03/11/19 11:36 03/11/19 12:09 03/12/19 04:50 White Blood Count 4.0 x10^3/uL (4.0-11.0) 3.6 x10^3/uL (4.0-11.0) Red Blood Count 4.00 x10^6/uL (4.30-5.70) 3.91 x10^6/uL (4.30-5.70) Hemoglobin 14.1 g/dL (13.0-17.5) 13.7 g/dL (13.0-17.5) Hematocrit 40.3 % (39.0-53.0) 39.4 % (39.0-53.0) Mean Corpuscular Volume 101 fL (79-100) 101 fL (79-100) Mean Corpuscular Hemoglobin 35 pg (25-35) 35 pg (25-35) Mean Corpuscular Hemoglobin Concent 35 g/dL (31-37) 35 g/dL (31-37) Red Cell Distribution Width 12.8 % (11.5-14.5) 13.0 % (11.5-14.5) Platelet Count 248 x10^3/uL (140-400) 206 x10^3/uL (140-400) Neutrophils (%) (Auto) 59 % (31-73) 47 % (31-73) Lymphocytes (%) (Auto) 22 % (24-48) 33 % (24-48) Monocytes (%) (Auto) 17 % (0-9) 18 % (0-9) Eosinophils (%) (Auto) 2 % (0-3) 2 % (0-3) Basophils (%) (Auto) 1 % (0-3) 1 % (0-3) Neutrophils # (Auto) 2.3 x10^3/uL (1.8-7.7) 1.7 x10^3/uL (1.8-7.7) Lymphocytes # (Auto) 0.9 x10^3/uL (1.0-4.8) 1.2 x10^3/uL (1.0-4.8) Monocytes # (Auto) 0.7 x10^3/uL (0.0-1.1) 0.7 x10^3/uL (0.0-1.1) Eosinophils # (Auto) 0.1 x10^3/uL (0.0-0.7) 0.1 x10^3/uL (0.0-0.7) Basophils # (Auto) 0.0 x10^3/uL (0.0-0.2) 0.0 x10^3/uL (0.0-0.2) Lactic Acid Level 1.0 mmol/L (0.4-2.0) Sodium Level 143 mmol/L (136-145) 139 mmol/L (136-145) Potassium Level 3.4 mmol/L (3.5-5.1) 3.8 mmol/L (3.5-5.1) Chloride Level 107 mmol/L (98-107) 106 mmol/L (98-107) Carbon Dioxide Level 29 mmol/L (21-32) 28 mmol/L (21-32) Anion Gap 7 (6-14) 5 (6-14) Blood Urea Nitrogen 13 mg/dL (8-26) 10 mg/dL (8-26) Creatinine 1.1 mg/dL (0.7-1.3) 1.2 mg/dL (0.7-1.3) Estimated GFR (Cockcroft-Gault) 87.2 78.9 BUN/Creatinine Ratio 12 (6-20) 8 (6-20) Glucose Level 93 mg/dL (70-99) 109 mg/dL (70-99) Calcium Level 8.5 mg/dL (8.5-10.1) 8.0 mg/dL (8.5-10.1) Total Bilirubin 0.4 mg/dL (0.2-1.0) 0.3 mg/dL (0.2-1.0) Aspartate Amino Transf (AST/SGOT) 23 U/L (15-37) 22 U/L (15-37) Alanine Aminotransferase (ALT/SGPT) 17 U/L (16-63) 18 U/L (16-63) Alkaline Phosphatase 93 U/L (46-116) 93 U/L (46-116) Total Protein 7.1 g/dL (6.4-8.2) 6.8 g/dL (6.4-8.2) Albumin 3.6 g/dL (3.4-5.0) 3.3 g/dL (3.4-5.0) Albumin/Globulin Ratio 1.0 (1.0-1.7) 0.9 (1.0-1.7) Assessment and Plan Assessmemt and Plan Problems Medical Problems: (1) Foot infection Status: Acute (2) Necrosis of tissue at site of injection Status: Acute (3) Trench foot of right lower extremity Status: Acute Comment Review of Relevant I have reviewed the following items lucila (where applicable) has been applied. Labs Laboratory Tests Test 03/11/19 11:36 03/11/19 12:09 03/12/19 04:50 White Blood Count 4.0 x10^3/uL (4.0-11.0) 3.6 x10^3/uL (4.0-11.0) Red Blood Count 4.00 x10^6/uL (4.30-5.70) 3.91 x10^6/uL (4.30-5.70) Hemoglobin 14.1 g/dL (13.0-17.5) 13.7 g/dL (13.0-17.5) Hematocrit 40.3 % (39.0-53.0) 39.4 % (39.0-53.0) Mean Corpuscular Volume 101 fL (79-100) 101 fL (79-100) Mean Corpuscular Hemoglobin 35 pg (25-35) 35 pg (25-35) Mean Corpuscular Hemoglobin Concent 35 g/dL (31-37) 35 g/dL (31-37) Red Cell Distribution Width 12.8 % (11.5-14.5) 13.0 % (11.5-14.5) Platelet Count 248 x10^3/uL (140-400) 206 x10^3/uL (140-400) Neutrophils (%) (Auto) 59 % (31-73) 47 % (31-73) Lymphocytes (%) (Auto) 22 % (24-48) 33 % (24-48) Monocytes (%) (Auto) 17 % (0-9) 18 % (0-9) Eosinophils (%) (Auto) 2 % (0-3) 2 % (0-3) Basophils (%) (Auto) 1 % (0-3) 1 % (0-3) Neutrophils # (Auto) 2.3 x10^3/uL (1.8-7.7) 1.7 x10^3/uL (1.8-7.7) Lymphocytes # (Auto) 0.9 x10^3/uL (1.0-4.8) 1.2 x10^3/uL (1.0-4.8) Monocytes # (Auto) 0.7 x10^3/uL (0.0-1.1) 0.7 x10^3/uL (0.0-1.1) Eosinophils # (Auto) 0.1 x10^3/uL (0.0-0.7) 0.1 x10^3/uL (0.0-0.7) Basophils # (Auto) 0.0 x10^3/uL (0.0-0.2) 0.0 x10^3/uL (0.0-0.2) Lactic Acid Level 1.0 mmol/L (0.4-2.0) Sodium Level 143 mmol/L (136-145) 139 mmol/L (136-145) Potassium Level 3.4 mmol/L (3.5-5.1) 3.8 mmol/L (3.5-5.1) Chloride Level 107 mmol/L (98-107) 106 mmol/L (98-107) Carbon Dioxide Level 29 mmol/L (21-32) 28 mmol/L (21-32) Anion Gap 7 (6-14) 5 (6-14) Blood Urea Nitrogen 13 mg/dL (8-26) 10 mg/dL (8-26) Creatinine 1.1 mg/dL (0.7-1.3) 1.2 mg/dL (0.7-1.3) Estimated GFR (Cockcroft-Gault) 87.2 78.9 BUN/Creatinine Ratio 12 (6-20) 8 (6-20) Glucose Level 93 mg/dL (70-99) 109 mg/dL (70-99) Calcium Level 8.5 mg/dL (8.5-10.1) 8.0 mg/dL (8.5-10.1) Total Bilirubin 0.4 mg/dL (0.2-1.0) 0.3 mg/dL (0.2-1.0) Aspartate Amino Transf (AST/SGOT) 23 U/L (15-37) 22 U/L (15-37) Alanine Aminotransferase (ALT/SGPT) 17 U/L (16-63) 18 U/L (16-63) Alkaline Phosphatase 93 U/L (46-116) 93 U/L (46-116) Total Protein 7.1 g/dL (6.4-8.2) 6.8 g/dL (6.4-8.2) Albumin 3.6 g/dL (3.4-5.0) 3.3 g/dL (3.4-5.0) Albumin/Globulin Ratio 1.0 (1.0-1.7) 0.9 (1.0-1.7) Laboratory Tests Test 03/11/19 11:36 03/11/19 12:09 03/12/19 04:50 White Blood Count 4.0 x10^3/uL (4.0-11.0) 3.6 x10^3/uL (4.0-11.0) Red Blood Count 4.00 x10^6/uL (4.30-5.70) 3.91 x10^6/uL (4.30-5.70) Hemoglobin 14.1 g/dL (13.0-17.5) 13.7 g/dL (13.0-17.5) Hematocrit 40.3 % (39.0-53.0) 39.4 % (39.0-53.0) Mean Corpuscular Volume 101 fL (79-100) 101 fL (79-100) Mean Corpuscular Hemoglobin 35 pg (25-35) 35 pg (25-35) Mean Corpuscular Hemoglobin Concent 35 g/dL (31-37) 35 g/dL (31-37) Red Cell Distribution Width 12.8 % (11.5-14.5) 13.0 % (11.5-14.5) Platelet Count 248 x10^3/uL (140-400) 206 x10^3/uL (140-400) Neutrophils (%) (Auto) 59 % (31-73) 47 % (31-73) Lymphocytes (%) (Auto) 22 % (24-48) 33 % (24-48) Monocytes (%) (Auto) 17 % (0-9) 18 % (0-9) Eosinophils (%) (Auto) 2 % (0-3) 2 % (0-3) Basophils (%) (Auto) 1 % (0-3) 1 % (0-3) Neutrophils # (Auto) 2.3 x10^3/uL (1.8-7.7) 1.7 x10^3/uL (1.8-7.7) Lymphocytes # (Auto) 0.9 x10^3/uL (1.0-4.8) 1.2 x10^3/uL (1.0-4.8) Monocytes # (Auto) 0.7 x10^3/uL (0.0-1.1) 0.7 x10^3/uL (0.0-1.1) Eosinophils # (Auto) 0.1 x10^3/uL (0.0-0.7) 0.1 x10^3/uL (0.0-0.7) Basophils # (Auto) 0.0 x10^3/uL (0.0-0.2) 0.0 x10^3/uL (0.0-0.2) Lactic Acid Level 1.0 mmol/L (0.4-2.0) Sodium Level 143 mmol/L (136-145) 139 mmol/L (136-145) Potassium Level 3.4 mmol/L (3.5-5.1) 3.8 mmol/L (3.5-5.1) Chloride Level 107 mmol/L (98-107) 106 mmol/L (98-107) Carbon Dioxide Level 29 mmol/L (21-32) 28 mmol/L (21-32) Anion Gap 7 (6-14) 5 (6-14) Blood Urea Nitrogen 13 mg/dL (8-26) 10 mg/dL (8-26) Creatinine 1.1 mg/dL (0.7-1.3) 1.2 mg/dL (0.7-1.3) Estimated GFR (Cockcroft-Gault) 87.2 78.9 BUN/Creatinine Ratio 12 (6-20) 8 (6-20) Glucose Level 93 mg/dL (70-99) 109 mg/dL (70-99) Calcium Level 8.5 mg/dL (8.5-10.1) 8.0 mg/dL (8.5-10.1) Total Bilirubin 0.4 mg/dL (0.2-1.0) 0.3 mg/dL (0.2-1.0) Aspartate Amino Transf (AST/SGOT) 23 U/L (15-37) 22 U/L (15-37) Alanine Aminotransferase (ALT/SGPT) 17 U/L (16-63) 18 U/L (16-63) Alkaline Phosphatase 93 U/L (46-116) 93 U/L (46-116) Total Protein 7.1 g/dL (6.4-8.2) 6.8 g/dL (6.4-8.2) Albumin 3.6 g/dL (3.4-5.0) 3.3 g/dL (3.4-5.0) Albumin/Globulin Ratio 1.0 (1.0-1.7) 0.9 (1.0-1.7) Medications Current Medications Sodium Chloride 1,000 ml @ 1,000 mls/hr 1X ONCE IV Last administered on 03/11/19at 11:38; Start 03/11/19 at 11:30; Stop 03/11/19 at 12:29; Status DC Ciprofloxacin/ Dextrose 200 ml @ 200 mls/hr 1X STAT IV Last administered on 03/11/19at 11:55; Start 03/11/19 at 11:23; Stop 03/11/19 at 12:22; Status DC Clindamycin Phosphate 50 ml @ 100 mls/hr 1X ONCE IV Last administered on 03/11/19at 13:59; Start 03/11/19 at 12:00; Stop 03/11/19 at 12:29; Status DC Morphine Sulfate (Morphine Sulfate) 2 mg PRN Q2HR PRN IV PAIN Last administered on 03/11/19at 20:11; Start 03/11/19 at 12:00; Stop 03/12/19 at 11:59 Vancomycin HCl 1 gm/Sodium Chloride 250 ml @ 250 mls/hr Q12H IV ; Start 03/11/19 at 13:00; Status UNV Acetaminophen (Tylenol) 1,000 mg PRN Q8HRS PRN PO MILD PAIN 1-3; Start 03/11/19 at 13:00 Vitamin D (Vitamin D3) 1,000 unit BID PO Last administered on 03/11/19at 20:18; Start 03/11/19 at 21:00 Losartan Potassium (Cozaar) 50 mg DAILY PO ; Start 03/12/19 at 09:00 Acetaminophen/ Hydrocodone Bitart (Lortab 7.5/325) 1 tab PRN Q6HRS PRN PO MODERATE PAIN; Start 03/11/19 at 13:00 Diphtheria/ Tetanus/Acell Pertussis (Boostrix) 0.5 ml ONCE ONCE VAX IM Last administered on 03/11/19at 14:01; Start 03/11/19 at 13:00; Stop 03/11/19 at 13:01; Status DC Potassium Chloride (Klor-Con) 40 meq 1X ONCE PO Last administered on 03/11/19at 16:17; Start 03/11/19 at 13:00; Stop 03/11/19 at 13:01; Status DC Potassium Chloride (Klor-Con) 20 meq DAILYWBKFT PO ; Start 03/12/19 at 08:00 Vancomycin HCl (Vanco Per Pharmacy) 1 each PRN DAILY PRN MC SEE COMMENTS Last administered on 03/11/19at 15:37; Start 03/11/19 at 13:00 Vancomycin HCl 1.75 gm/Sodium Chloride 500 ml @ 250 mls/hr 1X ONCE IV Last administered on 03/11/19at 13:59; Start 03/11/19 at 13:00; Stop 03/11/19 at 14:59; Status DC Piperacillin Sod/ Tazobactam Sod 3.375 gm/Sodium Chloride 50 ml @ 100 mls/hr Q6HRS IV Last administered on 03/12/19at 05:51; Start 03/11/19 at 18:00 Micafungin Sodium 100 mg/Dextrose 100 ml @ 100 mls/hr Q24H IV Last administered on 03/11/19at 15:11; Start 03/11/19 at 14:00 Vancomycin HCl 1.25 gm/Sodium Chloride 250 ml @ 167 mls/hr Q12H IV Last administered on 03/12/19at 02:04; Start 03/12/19 at 02:00 Vancomycin HCl (Vancomycin Trough Level) 1 each 1X ONCE MC ; Start 03/13/19 at 01:30; Stop 03/13/19 at 01:31 Oxycodone/ Acetaminophen (Percocet 5/325) 1 tab PRN Q6HRS PRN PO SEVERE PAIN Last administered on 03/11/19at 16:18; Start 03/11/19 at 16:00 Alteplase, Recombinant (Cathflo For Central Catheter Clearance) 1 mg 1X ONCE INT CAT ; Start 03/12/19 at 06:00; Stop 03/12/19 at 06:01; Status Cancel Active Scripts Active Reported Vicodin Es 7.5-300 Mg Tablet (Hydrocodone Bit/Acetaminophen) 1 Each Tablet 1 Each PO Q6HRS PRN [Aleve] PO PRN PRN Tylenol Extra Strength (Acetaminophen) 500 Mg Tablet 1,000 Mg PO PRN PRN Vitamin D3 (Cholecalciferol (Vitamin D3)) 1,000 Unit Tablet 1 Tab PO BID Losartan Potassium 50 Mg Tablet 1 Tab PO DAILY Vitals/I & O Vital Sign - Last 24 Hours 03/11/19 03/11/19 03/11/19 03/11/19 10:51 12:38 14:54 16:18 Temp 97.7 98.5 97.7 98.5 Pulse 67 64 Resp 18 19 B/P (MAP) 140/91 (107) 145/91 (109) 123/77 (92) Pulse Ox 100 98 O2 Delivery Room Air Room Air Room Air 03/11/19 03/11/19 03/11/19 03/11/19 17:18 19:45 19:55 20:11 Temp 98.6 98.6 Pulse 64 Resp 16 B/P (MAP) 126/64 (84) Pulse Ox 96 O2 Delivery Room Air Room Air Room Air Room Air 03/11/19 03/11/19 03/12/19 03/12/19 20:41 23:55 03:45 07:00 Temp 98.3 98.2 98.2 98.3 98.2 98.2 Pulse 65 63 60 Resp 16 16 16 B/P (MAP) 135/86 (102) 126/83 (97) 135/89 (104) Pulse Ox 97 100 98 O2 Delivery Room Air Room Air Room Air Room Air Intake and Output 03/11/19 03/11/19 03/12/19 14:59 22:59 06:59 Intake Total 500 ml 720 ml Output Total 300 ml Balance 200 ml 720 ml DEJA YEPEZ MD Mar 12, 2019 08:34
[2019-03-12] MEDS ORDERED: LOSARTAN POTASSIUM 50 MG TABLET. PO SCH (09:00)
[2019-03-12] MEDS ORDERED: ENOXAPARIN 40 MG/0.4 ML SYRINGE. SQ SCH (09:00)
[2019-03-12] MEDS: CHOLECALCIFEROL (VITAMIN D3) 1,000 UNIT TABLET PO SCH (09:17)
--- NOTE | 2019-03-12 09:27 | PDOC ---
Infectious Disease Note Subjective: Subjective pt is doing ok no f/c/n/v/d/abdo pain/sob foot pain ,itching and swelling reemains unchanged ROS: ROS otherwise neg Vital Signs: Vital Signs Vital Signs Date Time Temp Pulse Resp B/P (MAP) Pulse Ox O2 Delivery O2 Flow Rate FiO2 03/12/19 09:17 60 135/89 03/12/19 07:00 98.2 16 98 Room Air 98.2 Physical Exam: PHYSICAL EXAM GENERAL: Alert, oriented x 3 male, in no acute distress, lying comfortably in bed, pleasant, cooperative. HEENT: Normocephalic, atraumatic, anicteric. No thrush. Oral mucosa moist. NECK: Supple, no JVD. LUNGS: Clear bilaterally. HEART: S1, S2, no murmurs. ABDOMEN: Soft, nontender, nondistended. EXTREMITIES: No edema except for right foot dorsum some edema, slight warmth. Skin is peeling off the toes. Tinea present. Plantar wound aspect of the foot present, No april purulence, tenderness present, NEUROLOGIC: Alert and oriented x 3, grossly nonfocal. PSYCHIATRIC: Cooperative, appropriate mood and affect. Medications: Inpatient Meds: Current Medications Medications (Trade) Dose Ordered Sig/[facility] Start Time Stop Time Status Last Admin Dose Admin Acetaminophen (Tylenol) 1,000 mg PRN Q8HRS PRN 03/11/19 13:00 Acetaminophen/ Hydrocodone Bitart (Lortab 7.5/325) 1 tab PRN Q6HRS PRN 03/11/19 13:00 Alteplase, Recombinant (Cathflo For Central Catheter Clearance) 1 mg 1X ONCE 03/12/19 06:00 03/12/19 06:01 Cancel Ciprofloxacin/ Dextrose 200 ml @ 200 mls/hr 1X STAT 03/11/19 11:23 03/11/19 12:22 DC 03/11/19 11:55 200 MLS/HR Clindamycin Phosphate 50 ml @ 100 mls/hr 1X ONCE 03/11/19 12:00 03/11/19 12:29 DC 03/11/19 13:59 100 MLS/HR Diphtheria/ Tetanus/Acell Pertussis (Boostrix) 0.5 ml ONCE ONCE 03/11/19 13:00 03/11/19 13:01 DC 03/11/19 14:01 0.5 ML Enoxaparin Sodium (Lovenox 40mg Syringe) 40 mg Q24H 03/12/19 09:00 Losartan Potassium (Cozaar) 50 mg DAILY 03/12/19 09:00 03/12/19 09:17 50 MG Micafungin Sodium 100 mg/Dextrose 100 ml @ 100 mls/hr Q24H 03/11/19 14:00 03/11/19 15:11 100 MLS/HR Morphine Sulfate (Morphine Sulfate) 2 mg PRN Q2HR PRN 03/11/19 12:00 03/12/19 11:59 03/11/19 20:11 2 MG Oxycodone/ Acetaminophen (Percocet 5/325) 1 tab PRN Q6HRS PRN 03/11/19 16:00 03/11/19 16:18 1 TAB Piperacillin Sod/ Tazobactam Sod 3.375 gm/Sodium Chloride 50 ml @ 100 mls/hr Q6HRS 03/11/19 18:00 03/12/19 05:51 100 MLS/HR Potassium Chloride (Klor-Con) 20 meq [id number] 03/12/19 08:00 03/12/19 09:17 20 MEQ Sodium Chloride 1,000 ml @ 1,000 mls/hr 1X ONCE 03/11/19 11:30 03/11/19 12:29 DC 03/11/19 11:38 1,000 MLS/HR Vancomycin HCl (Vanco Per Pharmacy) 1 each PRN DAILY PRN 03/11/19 13:00 03/11/19 15:37 1 EACH Vancomycin HCl (Vancomycin Trough Level) 1 each 1X ONCE 03/13/19 01:30 03/13/19 01:31 Vancomycin HCl 1.25 gm/Sodium Chloride 250 ml @ 167 mls/hr Q12H 03/12/19 02:00 03/12/19 02:04 167 MLS/HR Vancomycin HCl 1.75 gm/Sodium Chloride 500 ml @ 250 mls/hr 1X ONCE 03/11/19 13:00 03/11/19 14:59 DC 03/11/19 13:59 250 MLS/HR Vancomycin HCl 1 gm/Sodium Chloride 250 ml @ 250 mls/hr Q12H 03/11/19 13:00 UNV Vitamin D (Vitamin D3) 1,000 unit BID 03/11/19 21:00 03/12/19 09:17 1,000 UNIT Labs: Lab Laboratory Tests Test 03/11/19 11:36 03/11/19 12:09 03/12/19 04:50 White Blood Count 4.0 x10^3/uL (4.0-11.0) 3.6 x10^3/uL (4.0-11.0) Red Blood Count 4.00 x10^6/uL (4.30-5.70) 3.91 x10^6/uL (4.30-5.70) Hemoglobin 14.1 g/dL (13.0-17.5) 13.7 g/dL (13.0-17.5) Hematocrit 40.3 % (39.0-53.0) 39.4 % (39.0-53.0) Mean Corpuscular Volume 101 fL (79-100) 101 fL (79-100) Mean Corpuscular Hemoglobin 35 pg (25-35) 35 pg (25-35) Mean Corpuscular Hemoglobin Concent 35 g/dL (31-37) 35 g/dL (31-37) Red Cell Distribution Width 12.8 % (11.5-14.5) 13.0 % (11.5-14.5) Platelet Count 248 x10^3/uL (140-400) 206 x10^3/uL (140-400) Neutrophils (%) (Auto) 59 % (31-73) 47 % (31-73) Lymphocytes (%) (Auto) 22 % (24-48) 33 % (24-48) Monocytes (%) (Auto) 17 % (0-9) 18 % (0-9) Eosinophils (%) (Auto) 2 % (0-3) 2 % (0-3) Basophils (%) (Auto) 1 % (0-3) 1 % (0-3) Neutrophils # (Auto) 2.3 x10^3/uL (1.8-7.7) 1.7 x10^3/uL (1.8-7.7) Lymphocytes # (Auto) 0.9 x10^3/uL (1.0-4.8) 1.2 x10^3/uL (1.0-4.8) Monocytes # (Auto) 0.7 x10^3/uL (0.0-1.1) 0.7 x10^3/uL (0.0-1.1) Eosinophils # (Auto) 0.1 x10^3/uL (0.0-0.7) 0.1 x10^3/uL (0.0-0.7) Basophils # (Auto) 0.0 x10^3/uL (0.0-0.2) 0.0 x10^3/uL (0.0-0.2) Lactic Acid Level 1.0 mmol/L (0.4-2.0) Sodium Level 143 mmol/L (136-145) 139 mmol/L (136-145) Potassium Level 3.4 mmol/L (3.5-5.1) 3.8 mmol/L (3.5-5.1) Chloride Level 107 mmol/L (98-107) 106 mmol/L (98-107) Carbon Dioxide Level 29 mmol/L (21-32) 28 mmol/L (21-32) Anion Gap 7 (6-14) 5 (6-14) Blood Urea Nitrogen 13 mg/dL (8-26) 10 mg/dL (8-26) Creatinine 1.1 mg/dL (0.7-1.3) 1.2 mg/dL (0.7-1.3) Estimated GFR (Cockcroft-Gault) 87.2 78.9 BUN/Creatinine Ratio 12 (6-20) 8 (6-20) Glucose Level 93 mg/dL (70-99) 109 mg/dL (70-99) Calcium Level 8.5 mg/dL (8.5-10.1) 8.0 mg/dL (8.5-10.1) Total Bilirubin 0.4 mg/dL (0.2-1.0) 0.3 mg/dL (0.2-1.0) Aspartate Amino Transf (AST/SGOT) 23 U/L (15-37) 22 U/L (15-37) Alanine Aminotransferase (ALT/SGPT) 17 U/L (16-63) 18 U/L (16-63) Alkaline Phosphatase 93 U/L (46-116) 93 U/L (46-116) Total Protein 7.1 g/dL (6.4-8.2) 6.8 g/dL (6.4-8.2) Albumin 3.6 g/dL (3.4-5.0) 3.3 g/dL (3.4-5.0) Albumin/Globulin Ratio 1.0 (1.0-1.7) 0.9 (1.0-1.7) Objective: Assessment: Rt trench foot Rt Foot cellulitis HTN prolonged exposure to water at work Plan: Plan of Care Vanc, zosyn and micafungin local foot care f/u labs and cults Pt is adamant to go home today as his son is sick and he needs to take him to the Doctor will give empiric augmentin, syvox or doxycycline and fluconazole off load local wound care per wound team risk of worsening discussed s/e of antibiotics discussed d/w Dr Russell and HOWARD ACOSTA MD Mar 12, 2019 09:27
[2019-03-12] MEDS: oxyCODONE/APAP 5/325 1 TAB TABLET PO PRN (09:31)
[2019-03-12] MEDS ORDERED: LINE600T12 PO (10:52)
[2019-03-12] MEDS ORDERED: FLUC100T4 PO (10:52)
[2019-03-12] MEDS ORDERED: HYDR1TAB15 PO (10:52)
[2019-03-12] MEDS ORDERED: AMOX1TAB61 PO (10:52)
[2019-03-12 11:00] VITALS: BP 154/108
--- NOTE | 2019-03-12 11:01 | PDOC3 ---
Discharge Summary Visit Information Date of Admission: Mar 11, 2019 Date of Discharge: Mar 12, 2019 Admitting Diagnosis: Right trench foot Final Diagnosis Problems Medical Problems: (1) Foot infection Status: Acute (2) Necrosis of tissue at site of injection Status: Acute (3) Trench foot of right lower extremity Status: Acute Brief Hospital Course Allergies Allergies Coded Allergies Type Severity Reaction Last Updated Verified No Known Drug Allergies 08/25/14 No Vital Signs Vital Signs Date Time Temp Pulse Resp B/P (MAP) Pulse Ox O2 Delivery O2 Flow Rate FiO2 03/12/19 10:31 Room Air 03/12/19 09:17 60 135/89 03/12/19 07:00 98.2 16 98 98.2 Lab Results Laboratory Tests Test 03/11/19 11:36 03/11/19 12:09 03/12/19 04:50 White Blood Count 4.0 x10^3/uL (4.0-11.0) 3.6 x10^3/uL (4.0-11.0) Red Blood Count 4.00 x10^6/uL (4.30-5.70) 3.91 x10^6/uL (4.30-5.70) Hemoglobin 14.1 g/dL (13.0-17.5) 13.7 g/dL (13.0-17.5) Hematocrit 40.3 % (39.0-53.0) 39.4 % (39.0-53.0) Mean Corpuscular Volume 101 fL (79-100) 101 fL (79-100) Mean Corpuscular Hemoglobin 35 pg (25-35) 35 pg (25-35) Mean Corpuscular Hemoglobin Concent 35 g/dL (31-37) 35 g/dL (31-37) Red Cell Distribution Width 12.8 % (11.5-14.5) 13.0 % (11.5-14.5) Platelet Count 248 x10^3/uL (140-400) 206 x10^3/uL (140-400) Neutrophils (%) (Auto) 59 % (31-73) 47 % (31-73) Lymphocytes (%) (Auto) 22 % (24-48) 33 % (24-48) Monocytes (%) (Auto) 17 % (0-9) 18 % (0-9) Eosinophils (%) (Auto) 2 % (0-3) 2 % (0-3) Basophils (%) (Auto) 1 % (0-3) 1 % (0-3) Neutrophils # (Auto) 2.3 x10^3/uL (1.8-7.7) 1.7 x10^3/uL (1.8-7.7) Lymphocytes # (Auto) 0.9 x10^3/uL (1.0-4.8) 1.2 x10^3/uL (1.0-4.8) Monocytes # (Auto) 0.7 x10^3/uL (0.0-1.1) 0.7 x10^3/uL (0.0-1.1) Eosinophils # (Auto) 0.1 x10^3/uL (0.0-0.7) 0.1 x10^3/uL (0.0-0.7) Basophils # (Auto) 0.0 x10^3/uL (0.0-0.2) 0.0 x10^3/uL (0.0-0.2) Lactic Acid Level 1.0 mmol/L (0.4-2.0) Sodium Level 143 mmol/L (136-145) 139 mmol/L (136-145) Potassium Level 3.4 mmol/L (3.5-5.1) 3.8 mmol/L (3.5-5.1) Chloride Level 107 mmol/L (98-107) 106 mmol/L (98-107) Carbon Dioxide Level 29 mmol/L (21-32) 28 mmol/L (21-32) Anion Gap 7 (6-14) 5 (6-14) Blood Urea Nitrogen 13 mg/dL (8-26) 10 mg/dL (8-26) Creatinine 1.1 mg/dL (0.7-1.3) 1.2 mg/dL (0.7-1.3) Estimated GFR (Cockcroft-Gault) 87.2 78.9 BUN/Creatinine Ratio 12 (6-20) 8 (6-20) Glucose Level 93 mg/dL (70-99) 109 mg/dL (70-99) Calcium Level 8.5 mg/dL (8.5-10.1) 8.0 mg/dL (8.5-10.1) Total Bilirubin 0.4 mg/dL (0.2-1.0) 0.3 mg/dL (0.2-1.0) Aspartate Amino Transf (AST/SGOT) 23 U/L (15-37) 22 U/L (15-37) Alanine Aminotransferase (ALT/SGPT) 17 U/L (16-63) 18 U/L (16-63) Alkaline Phosphatase 93 U/L (46-116) 93 U/L (46-116) Total Protein 7.1 g/dL (6.4-8.2) 6.8 g/dL (6.4-8.2) Albumin 3.6 g/dL (3.4-5.0) 3.3 g/dL (3.4-5.0) Albumin/Globulin Ratio 1.0 (1.0-1.7) 0.9 (1.0-1.7) Laboratory Tests Test 03/11/19 11:36 03/11/19 12:09 03/12/19 04:50 White Blood Count 4.0 x10^3/uL (4.0-11.0) 3.6 x10^3/uL (4.0-11.0) Red Blood Count 4.00 x10^6/uL (4.30-5.70) 3.91 x10^6/uL (4.30-5.70) Hemoglobin 14.1 g/dL (13.0-17.5) 13.7 g/dL (13.0-17.5) Hematocrit 40.3 % (39.0-53.0) 39.4 % (39.0-53.0) Mean Corpuscular Volume 101 fL (79-100) 101 fL (79-100) Mean Corpuscular Hemoglobin 35 pg (25-35) 35 pg (25-35) Mean Corpuscular Hemoglobin Concent 35 g/dL (31-37) 35 g/dL (31-37) Red Cell Distribution Width 12.8 % (11.5-14.5) 13.0 % (11.5-14.5) Platelet Count 248 x10^3/uL (140-400) 206 x10^3/uL (140-400) Neutrophils (%) (Auto) 59 % (31-73) 47 % (31-73) Lymphocytes (%) (Auto) 22 % (24-48) 33 % (24-48) Monocytes (%) (Auto) 17 % (0-9) 18 % (0-9) Eosinophils (%) (Auto) 2 % (0-3) 2 % (0-3) Basophils (%) (Auto) 1 % (0-3) 1 % (0-3) Neutrophils # (Auto) 2.3 x10^3/uL (1.8-7.7) 1.7 x10^3/uL (1.8-7.7) Lymphocytes # (Auto) 0.9 x10^3/uL (1.0-4.8) 1.2 x10^3/uL (1.0-4.8) Monocytes # (Auto) 0.7 x10^3/uL (0.0-1.1) 0.7 x10^3/uL (0.0-1.1) Eosinophils # (Auto) 0.1 x10^3/uL (0.0-0.7) 0.1 x10^3/uL (0.0-0.7) Basophils # (Auto) 0.0 x10^3/uL (0.0-0.2) 0.0 x10^3/uL (0.0-0.2) Lactic Acid Level 1.0 mmol/L (0.4-2.0) Sodium Level 143 mmol/L (136-145) 139 mmol/L (136-145) Potassium Level 3.4 mmol/L (3.5-5.1) 3.8 mmol/L (3.5-5.1) Chloride Level 107 mmol/L (98-107) 106 mmol/L (98-107) Carbon Dioxide Level 29 mmol/L (21-32) 28 mmol/L (21-32) Anion Gap 7 (6-14) 5 (6-14) Blood Urea Nitrogen 13 mg/dL (8-26) 10 mg/dL (8-26) Creatinine 1.1 mg/dL (0.7-1.3) 1.2 mg/dL (0.7-1.3) Estimated GFR (Cockcroft-Gault) 87.2 78.9 BUN/Creatinine Ratio 12 (6-20) 8 (6-20) Glucose Level 93 mg/dL (70-99) 109 mg/dL (70-99) Calcium Level 8.5 mg/dL (8.5-10.1) 8.0 mg/dL (8.5-10.1) Total Bilirubin 0.4 mg/dL (0.2-1.0) 0.3 mg/dL (0.2-1.0) Aspartate Amino Transf (AST/SGOT) 23 U/L (15-37) 22 U/L (15-37) Alanine Aminotransferase (ALT/SGPT) 17 U/L (16-63) 18 U/L (16-63) Alkaline Phosphatase 93 U/L (46-116) 93 U/L (46-116) Total Protein 7.1 g/dL (6.4-8.2) 6.8 g/dL (6.4-8.2) Albumin 3.6 g/dL (3.4-5.0) 3.3 g/dL (3.4-5.0) Albumin/Globulin Ratio 1.0 (1.0-1.7) 0.9 (1.0-1.7) Brief Hospital Course Mr Mcdonald is a 48 yo M w/ PMHx Hypertension, hyperlipidemia, marijuana use who presented to the ER on 03/11/2019 with complaints of right foot wound, which is getting worse over the last week. At his job he stepped and soaked his foot in water with wet socks and shoes for over 9 hours. He was started on Cipro and cl indamycin and admitted for right trench foot with ID consult and Ortho consult. Feeling improved today. Found out his son needs to be hospitalized. Wishes for d/c. Needs to keep his foot elevated. pain with dressing change. D/w ID he can go home on zyvox and augmentin 14 days as well as fluconazole 10 days and have wound care f/u outpatient. A/P: SEVERE Trench foot of right lower extremity CELLULITIS RIGHT FOOT, ACUTE THC ABUSE HX HTN Macrocytosis Greater than 30 minutes spent on d/c Discharge Information Condition at Discharge: Improved Follow Up: Weeks (1) Disposition/Orders: D/C to Home Scheduled Amoxicillin/Potassium Clav (Augmentin 875-125 Tablet) 1 Each Tablet, 1 TAB PO BID for Trench foot for 14 Days, #28 Ref 0 Prescribed by: DEJA YEPEZ MD on 03/12/19 1052 Cholecalciferol (Vitamin D3) (Vitamin D3) 1,000 Unit Tablet, 1 TAB PO BID, #30 Ref 5 (Reported) Entered as Reported by: GERMAIN ROMERO on 08/21/141822 Last Action: Continued on 03/11/191248 by GIL RICE MD Fluconazole (Fluconazole) 100 Mg Tablet, 1 TAB PO DAILY for Trench foot, #10 Prescribed by: DEJA YEPEZ MD on 03/12/19 1052 Linezolid (Zyvox) 600 Mg Tablet, 600 MG PO BID for Trench foot for 14 Days, #28 Prescribed by: DEJA YEPEZ MD on 03/12/19 1052 Losartan Potassium (Losartan Potassium) 50 Mg Tablet, 1 TAB PO DAILY, #30 Ref 5 (Reported) Entered as Reported by: GERMAIN ROMERO on 08/21/141822 Last Action: Continued on 03/11/191248 by GIL RICE MD Scheduled PRN Acetaminophen (Tylenol Extra Strength) 500 Mg Tablet, 1,000 MG PO PRN PRN for PAIN, (Reported) Entered as Reported by: GERMAIN ROMERO on 08/21/141823 Last Action: Continued on 03/11/191248 by GIL RICE MD Hydrocodone Bit/Acetaminophen (Vicodin Es 7.5-300 Mg Tablet) 1 Each Tablet, 1 EACH PO PRN Q6HRS PRN for PAIN for 6 Days, #20 Prescribed by: DEJA YEPEZ MD on 03/12/19 1052 [Aleve] , PO PRN PRN for PAIN/HEADACHE, (Reported) Entered as Reported by: GERMAIN ROMERO on 08/21/141825 DEJA YEPEZ MD Mar 12, 2019 11:01
--- NOTE | 2019-03-12 11:45 | NUR ---
Wound Care Pt seen for wound care consultation re: R foot "trench foot". R foot dressing removed, pt with significant pain to area upon dressing removal. R foot cleaned and dried, skin is dry and crusty on dorsal surface, plantar folds below toes is dusky red, maceration and open wound between great and 2nd toe. Aquacel AG placed between great and 2nd toe, Xeroform gauze intertwined between remaining toes and plantar surface, covered with gauze and kerlix, recommended pt change dressing every other day. Educated pt on s/sx of infection, drying feet completely before applying dressings, dressing changes, and provided number to wound clinic for f/u, if he desired, supplies left in pt room. No other open wounds noted on full skin inspection, left foot/toes with similar presentation but are dry and crusty, no open areas noted.
--- NOTE | 2019-03-12 11:49 | NUR ---
SW following for discharge planning. Chart reviewed, discussed with RN. PT is from home. RN advised no SW need. Pt has discharge order in chart.
[2019-03-12 12:55] LABS: % ATYL 2 % (0-0); % BANDS 4 % (0-9); % EOS 2 % (0-5); % LYMPHS 27 % (24-48)
[2019-03-12 12:56] LABS: % MONOS 12 % (0-10); % SEGS 53 % (35-66); PLT ESTIMATE ADEQUATE (ADEQUATE)
== END 2019-03-12 11:49 | disposition home or self-care (01) | DRG 923 ==
LOC: ER 10:44 → 4 NORTH 11:48
PROVIDERS: ADMIT Family Medicine; ATTEND Family Medicine
DX: T69.021A Immersion foot, right foot, initial encounter (principal); L03.115 Cellulitis of right lower limb; D75.89 Other specified diseases of blood and blood-forming organs; E78.00 Pure hypercholesterolemia, unspecified; E78.5 Hyperlipidemia, unspecified; F12.20 Cannabis dependence, uncomplicated; I10 Essential (primary) hypertension; Z82.49 Family history of ischemic heart disease and other diseases of the circulatory system; Z79.899 Other long term (current) drug therapy
CPT/HCPCS: 36415; 73630; 80053; 82607; 83605; 85007; 85025; 87040; 90471; 90715; 96365; J0744; J2248; J2270; J2543; J3370; J3490; J7030; J7040; J7050; 99285-25; G0378

== ENCOUNTER 2020-01-29 18:54 | Emergency (ER) | payer OTHER ==
[2019-03-21 10:15] VITALS: BP 147/105
[~2020-01-29] VITALS: Ht 175.3 cm; Wt 72.7 kg
[~2020-01-29 18:54] MED LIST changes: +AMOX1TAB61 PO; +FLUC100T4 PO; +LINE600T12 PO
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
== END 2020-01-29 20:37 | disposition home or self-care (01) ==
LOC: ER 18:54
DX: D35.01 Benign neoplasm of right adrenal gland (principal); M54.2 Cervicalgia; M25.511 Pain in right shoulder; M25.561 Pain in right knee; M25.562 Pain in left knee; V89.2XXA Person injured in unspecified motor-vehicle accident, traffic, initial encounter; Y93.89 Activity, other specified; Y92.488 Other paved roadways as the place of occurrence of the external cause; Y99.8 Other external cause status
CPT/HCPCS: 70450; 72125; 72128; 72131; 73030; 73560; 99285-25